=== PATIENT | male | born 1960 | race Two or more races ===

== ENCOUNTER 2024-10-11 06:42 | Emergency (ER) | payer OTHER ==
[2024-10-11 06:47] VITALS: RESP 18; TEMP 98.6; BMI 27.6
[2024-10-11] MEDS ORDERED: ACETAMINOPHEN INJECTION 100 ML ONE (07:57)
[2024-10-11] MEDS ORDERED: FAMOTIDINE 20 MG/50 ML IVPB 20 MG/50 ML MG IVPB ONE (07:57)
[2024-10-11] MEDS ORDERED: ONDANSETRON 4 MG/2 ML VIAL ONE (07:57)
[2024-10-11] MEDS ORDERED: MAG HYDROX/AL HYDROX/SIMETH 30 ML UNIT-DOSE CUP ONE (07:57)
[2024-10-11] MEDS: SODIUM CHLORIDE 1,000 ML IV STA (08:05)
[2024-10-11] MEDS: ONDANSETRON 4 MG/2 ML VIAL IVPB ONE (08:05)
[2024-10-11] MEDS: ACETAMINOPHEN 1000 MG/100 ML BAG IVPB ONE (08:10)
[2024-10-11] MEDS: FAMOTIDINE 20 MG/50 ML IVPB 20 MG/50 ML MG IVPB ONE (08:10)
[2024-10-11 08:23] LABS: ABSOLUTE IMMATURE GRANULOCYTES 0.02 x10^3/uL (0.0-0.031); BASOPHILS # 0.01 x10^3/uL (0.01-0.08); HEMATOCRIT 50.4 % (40.1-51.0); HEMOGLOBIN 16.1 g/dL (13.7-17.5); MCHC 31.9 g/dl (32.3-36.5); MEAN CELL VOLUME 92.8 fl (79.0-92.2); MEAN PLT VOLUME 9.2 fl (9.4-12.4); MONOCYTE # 0.41 x10^3/uL (0.30-0.82); MONOCYTE % 3.8 % (5.3-12.2); PLATELET COUNT 253 x10^3/uL (163-337); RDW 13.2 % (12.2-16.4)
[2024-10-11] MEDS: MAG HYDROX/AL HYDROX/SIMETH 30 ML UNIT-DOSE CUP PO ONE (08:30)
[2024-10-11 08:58] LABS: POTASSIUM 4.5 mmol/L (3.5-5.1)
[2024-10-11 09:01] LABS: CALCIUM 9.9 mg/dL (8.5-10.1)
[2024-10-11 09:02] LABS: ALBUMIN 3.9 g/dl (3.4-5.0); BLOOD UREA NITROGEN 16.7 mg/dL (7-18)
[2024-10-11 09:06] LABS: BILIRUBIN,TOTAL 0.9 mg/dL (0.2-1); TOT PROT 7.4 g/dl (6.4-8.2)
[2024-10-11 11:25] LABS: PH,URINE 5.5 (5.0-8.0); URINE APPEARANCE CLEAR; URINE BILIRUBIN NEGATIVE (NEGATIVE); URINE COLOR YELLOW; URINE GLUCOSE (UA) NEGATIVE (NEGATIVE); URINE KETONE NEGATIVE (NEGATIVE); URINE LEUK ESTERASE NEGATIVE (NEGATIVE); URINE NITRITE NEGATIVE (NEGATIVE); URINE PROTEIN NEGATIVE (NEGATIVE); URINE UROBILINOGEN 0.2 mg/dL (0.2-1.0)
[2024-10-11] MEDS: LACTATED RINGERS SOLUTION 1,000 ML/1,000 ML INFUS.BAG IV SCH (12:26)
[2024-10-11 12:28] LABS: HCV DIAGNOSTIC IN-HOUSE W/RFLX NON-REACTIVE (NONREACTIVE)
[2024-10-11 12:29] LABS: HIV INTERPRETATION NEGATIVE (NEGATIVE)
[2024-10-11 15:24] VITALS: BP 154/85; PULSE 61
== END 2024-10-11 15:10 | disposition home or self-care (01) ==
LOC: JER 06:42
PROC: 3E033GC Introduction of Other Therapeutic Substance into Peripheral Vein, Percutaneous Approach (ICD-10-PCS; principal; 2024-10-11)
PROC: 3E033NZ Introduction of Analgesics, Hypnotics, Sedatives into Peripheral Vein, Percutaneous Approach (ICD-10-PCS; 2024-10-11)
PROC: 3E033GC Introduction of Other Therapeutic Substance into Peripheral Vein, Percutaneous Approach (ICD-10-PCS; 2024-10-11)
DX: R10.84 Generalized abdominal pain (principal); R11.2 Nausea with vomiting, unspecified; R14.0 Abdominal distension (gaseous)
CPT/HCPCS: 36415; 74177-TC; 80053; 81003; 83690; 85025; 86803; 87086; 87389; 93005; 93010; 99285-25; J0131